=== PATIENT | male | born 1990 | race African-American/Black ===

== ENCOUNTER 2019-07-05 21:41 | Emergency (ER) | payer OTHER ==
[2019-07-05 21:57] VITALS: BP 117/60; PULSE 76; TEMP 98; BMI 20.9
[2019-07-05] MEDS ORDERED: AZITHROMYCIN 500 MG TABLET PO ONE (22:26)
--- NOTE | 2019-07-05 22:28 | PDOC ---
History of Present Illness - General Chief Complaint: Penile Drainage Stated Complaint: PENILE DISCHARGE History Source: Patient Exam Limitations: No Limitations - History of Present Illness Initial Comments: 07/05/19 22:23 This is a 29-year-old male who comes in complaining of penile discharge x2 days. Patient has had unprotected sex recently and his partner told him she had a urinary tract infection however he is concerned she may also have other infections. Patient otherwise denies any fevers, chills, nausea vomiting or diarrhea. Patient is complaining of some discomfort with urination as well. Allergies: as per nursing notes Past Medical History: none Social history: Lives with family. No smoking. No alcohol. No illicit drugs. Surgical history: None General: No fevers or chills, no weakness, no weight loss HEENT: No change in vision. No sore throat,. No ear pain CardioVascular: no chest discomfort. No shortness of breath Respiratory:No cough, or wheezing. Gastrointestinal: no nausea, vomiting, diarrhea or constipation, No rectal bleeding Genitourinary: No dysuria, hematuria, or frequency Musculoskeletal: No joint or muscle pain or swelling Neurologic: No headache, vertigo, dizziness or loss of consciousness Psychiatric: nor depression Skin: No rashes or easy bruising Endocrine: no increased thirst or abnormal weight change Allergic: no skin or latex allergy All other systems reviewed and normal GENERAL: The patient is awake, alert, and fully oriented, in no acute distress. HEAD: Normal with no signs of trauma. EYES: Pupils equal, round and reactive to light, extraocular movements intact, sclera anicteric, conjunctiva clear. EXTREMITIES:atraumatic, Normal range of motion, no edema. : Normal circumcised male penis with moderate amount of white discharge. No penile or lesions of the external genitalia. NEUROLOGICAL: Normal speech, normal gait. PSYCH: Normal mood, normal affect. SKIN: Warm, Dry, normal turgor, no rashes or lesions noted. 07/06/19 06:40 Assessment and plan: This is a 29-year-old male with STD exposure who was treated for chlamydia gonorrhea and tests were sent for RPR and HIV. The lab tells me they are out of reagent for the HIV test so the results will not be available for the patient to receive them before discharge. Patient discharged Past History - Past Medical History Allergies/Adverse Reactions: Allergies Allergy/AdvReac Type Severity Reaction Status Date / Time No Known Allergies Allergy Unverified 07/05/19 21:42 Home Medications: Ambulatory Orders NK [No Known Home Medication] 07/05/19 COPD: No - Psycho Social/Smoking Cessation Hx Smoking History: Current every day smoker Number of Cigarettes Smoked Daily: 0 Information on smoking cessation initiated: Yes Drug/Substance Use Hx: Yes (MARIJUANA) *Physical Exam - Vital Signs Last Vital Signs Temp Pulse Resp BP Pulse Ox 98 F 76 16 117/60 100 07/05/19 21:43 07/05/19 21:43 07/05/19 21:43 07/05/19 21:43 07/05/19 21:43 Discharge - Discharge Information Problems reviewed: Yes Clinical Impression/Diagnosis: Sexually transmitted disease exposure Condition: Stable Disposition: HOME - Admission No - Follow up/Referral Referrals: Oscar Mckeon [Primary Care Provider] - CallBack Reminder: Call patient with the results - Patient Discharge Instructions Additional Instructions: Your treated for chlamydia and gonorrhea however you have results pending for syphilis We will call you with any of your results are positive. No unprotected sex until you have the results here cultures. If any of them are positive your partner will need to be notified and treated. Return to the emergency department immediately with ANY new, persistent or worsening symptoms. Continue any medications as previously prescribed by your physician. You should follow up with your primary doctor as soon as possible regarding today's emergency department visit. . Please make sure your doctor reviews the results of your emergency evaluation. Thank you for coming to the Emergency Department today for your care. It was a pleasure to see you today. Please note that your evaluation is INCOMPLETE until you follow-up with your doctor. - Post Discharge Activity
[2019-07-05] MEDS ORDERED: AZITHROMYCIN 500 MG TABLET ONE (22:31)
== END 2019-07-06 01:24 | disposition home or self-care (01) ==
LOC: FER 21:41
DX: Z20.2 Contact with and (suspected) exposure to infections with a predominantly sexual mode of transmission (principal); F17.210 Nicotine dependence, cigarettes, uncomplicated
CPT/HCPCS: 36415; 86593; 87389; 87491; 87591; 99282-25